=== PATIENT | male | born 1985 | race Caucasian/White ===

== ENCOUNTER 2022-03-02 03:11 | Emergency (ER) | payer BC, OTHER ==
[~2022-03-02] VITALS: Ht 172.7 cm; Wt 80.3 kg
[2022-03-02 03:18] VITALS: BP 135/78
--- NOTE | 2022-03-02 03:29 | NUR ---
Patient discharged to home in stable condition. Written and verbal after care instructions given. Patient verbalizes understanding of instruction.
== END 2022-03-02 03:29 | disposition home or self-care (01) ==
LOC: ER 03:11
DX: N47.1 Phimosis (principal)